=== PATIENT | female | born 1995 | race Caucasian/White ===

== ENCOUNTER → 2023-08-22 10:15 | Outpatient (REF) | payer OTHER, SELFPAY ==
[2023-08-24 11:19] LABS: Quantiferon Mitogen minus NIL 8.08 IU/mL; Quantiferon NIL 0.06 IU/mL; Quantiferon Plus TB1 minus NIL 0.08 IU/mL (0.00-0.34); Quantiferon TB Gold Plus Negative (Negative)
== END ==
LOC: REG 10:15
PROVIDERS: ATTENDING PHYSICIAN Nurse Practitioner Family
DX: Z23 Encounter for immunization (principal)
CPT/HCPCS: 36415; 86480

== ENCOUNTER → 2024-07-27 07:58 | Outpatient (REF) | payer BC, SELFPAY ==
[2024-07-29 22:08] LABS: Fat, Fecal - Neutral Normal (Normal); Fat, Fecal - Split Normal (Normal)
== END ==
LOC: REG 07:58
PROVIDERS: ATTENDING PHYSICIAN Internal Medicine; FAMILY PHYSICIAN Family Medicine
DX: K90.9 Intestinal malabsorption, unspecified (principal)
CPT/HCPCS: 82705